=== PATIENT | male | born 1995 | race Hispanic/Latino ===

== ENCOUNTER 2019-04-09 08:55 | Emergency (ER) | payer OTHER ==
[~2019-04-09] VITALS: Ht 175.3 cm; Wt 88.6 kg
[2019-04-09] MEDS ORDERED: ASPI325T57 PO (09:03)
[2019-04-09] MEDS ORDERED: IBUP-1114 PO (09:03)
[2019-04-09] MEDS ORDERED: diphenhydrAMINE INJ 50MG/ML VIAL (J1200) IV STA (10:14)
[2019-04-09] MEDS ORDERED: KETOROLAC 30 MG/ML VIAL (J1885) IV ONE (10:15)
[2019-04-09] MEDS ORDERED: NS 1,000 ML IV ONE (10:15)
[2019-04-09] MEDS ORDERED: METOCLOPRAMIDE INJ 10MG/2ML VIAL (J2765) IV ONE (10:15)
[2019-04-09 13:20] VITALS: BP 158/99
== END 2019-04-09 13:18 | disposition home or self-care (01) ==
LOC: M ED 08:55
DX: G44.009 Cluster headache syndrome, unspecified, not intractable (principal); F17.210 Nicotine dependence, cigarettes, uncomplicated
CPT/HCPCS: 80047; 96361; 96374; 96375; 99284; J1200; J1885; J2765

== ENCOUNTER → 2019-09-06 | Outpatient (CLI) | payer OTHER ==
[~2019-09-06] MED LIST: ASPI325T57 PO; IBUP-1114 PO
--- NOTE | 2019-09-06 09:27 | REP ---
RENAL ULTRASOUND WITH DUPLEX DOPPLER RENAL ARTERY EVALUATION: Real-time sonographic evaluation of the kidneys performed. The kidneys are normal in size and echotexture, right kidney measuring 11.1 x 5.2 x 5.2 cm and left kidney 7.3 x 4.2 x 4.9 cm. There is no hydronephrosis or renal mass bilaterally. Urinary bladder is mildly distended. Ureteral jets are not visualized with Doppler color evaluation. Real-time sonographic evaluation and duplex Doppler interrogation of the renal arteries is performed bilaterally. Peak systolic velocity of the abdominal aorta at the level of the renal arteries 112 cm/s. Peak systolic velocity of the main right renal artery is 146 cm/s, renal to aortic ratio 1.3. Resistive indices are measured in the upper, middle and lower thirds of the right kidney and range between 0.48 and 0.52. Acceleration time is within the range of 0.044. Peak systolic velocity of the main left renal artery is 98.8 cm/s, renal to aortic ratio is 0.8. Resistive indices left kidney range between 0.42 and 0.46. Acceleration times range between 0.051 and 0.059. IMPRESSION: No compelling duplex Doppler sonographic evidence of significant renal artery stenosis bilaterally. Electronically Signed by Stuart Mccracken MD 09/06/2019 12:50 P
== END ==
LOC: M RAD 06:38
PROVIDERS: ATTEND Physician Assistant
DX: I10 Essential (primary) hypertension (principal)